=== PATIENT | male | born 1940 | race Caucasian/White ===

== ENCOUNTER 2018-02-07 17:41 | Emergency (ER) | payer MEDICARE, SELFPAY ==
[2018-02-07 17:44] VITALS: BP 168/54; PULSE 50; RESP 20; TEMP 36.2; O2SAT 97; BMI 24.0
--- NOTE | 2018-02-07 18:21 | ED_ITS ---
HPI - Abdominal Pain <KIRAN Yoder - Last Filed: 02/07/18 22:40> General Chief Complaint: Abdominal Pain Stated Complaint: RIGHT LWR ABDOMINAL PAIN,BLOOD IN URINE Time Seen by Provider: 02/07/18 18:05 History of Present Illness HPI narrative: 77-year-old healthy male here for complaint of pain into his right lower quadrant. Pain radiates into his right flank area. He denies any trauma to the area. He also reports that he has had blood in his urine over the last few weeks. He denies any fevers or chills. Last bowel movement was yesterday and was normal. Positive nausea. No vomiting. He denies any other concerns or complaints at this point. He reports that walking and weight- bearing increase the pain. Related Data Home Medications Medication Instructions Recorded Confirmed No Known Home Medications 02/07/18 02/07/18 Allergies Allergy/AdvReac Type Severity Reaction Status Date / Time No Known Drug Allergies Allergy Unverified 02/07/18 17:01 Review of Systems <KIRAN Yoder - Last Filed: 02/07/18 22:40> Constitutional Denies chills, Denies fever(s), Denies lethargy and Denies weakness Eyes Denies change in vision, Denies eye discharge, Denies irritation and Denies loss of vision ENT Ears, Nose, Mouth, and Throat: Denies change in voice, Denies neck pain and Denies sore throat Cardiovascular Denies chest pain, Denies irregular heart rhythm, Denies lightheadedness, Denies palpitations, Denies dyspnea, Denies dyspnea on exertion and Denies orthopnea Respiratory Denies cough, Denies dyspnea, Denies dyspnea on exertion and Denies wheezing Gastrointestinal Gastrointestinal: Reports abdominal pain Genitourinary Reports hematuria and Reports flank pain Musculoskeletal Denies neck pain Integumentary/Breasts Denies pruritus, Denies erythema, Denies rash and Denies wounds Neurologic Denies loss of vision and Denies weakness Endocrine Denies palpitations Hematologic/Lymphatic Denies easy bruising Allergic/Immunologic Denies wheezing Exam <KIRAN Yoder - Last Filed: 02/07/18 22:40> Initial Vital Signs Initial Vital Signs: Vital Signs Temperature 97.1 F L 02/07/18 17:44 Pulse Rate 50 L 02/07/18 17:44 Respiratory Rate 20 02/07/18 17:44 Blood Pressure 168/54 H 02/07/18 17:44 Pulse Oximetry 97 02/07/18 17:44 Const General: cooperative and well developed Nutritional Appearance: well nourished Orientation: alert, awake, oriented x3 and not confused [facility] Mouth: oral mucosae normal, oropharynx normal and moist mucous membranes Eyes Conjunctivae: conjunctivae normal Sclera: sclerae normal Pupils: PERRL EOM: EOM intact bilaterally Resp Effort & Inspection: normal respiratory effort, able to speak in complete sentences, no respiratory distress and no use of accessory muscles Auscultation: clear to auscultation bilaterally, no rales, no rhonchi and no wheezes Cardio Rate: regular rate Rhythm: regular rhythm Heart Sounds: no click, no gallops, no murmurs and no rubs GI Inspection: distended Palpation: no hepatosplenomegaly, firm, No guarding, No pulsatile mass and No tender General: No CVA tenderness Skin General: no rashes or lesions noted, No jaundice and No petechiae <Evan Sanchez DO - Last Filed: 02/08/18 00:17> Initial Vital Signs Initial Vital Signs: Vital Signs Temperature 97.1 F L 02/07/18 17:44 Pulse Rate 50 L 02/07/18 17:44 Respiratory Rate 20 02/07/18 17:44 Blood Pressure 168/54 H 02/07/18 17:44 Pulse Oximetry 97 02/07/18 17:44 Course <KIRAN Yoder - Last Filed: 02/07/18 22:40> Orders Ordered: ED Orders 02/07/18 20:00 Complete Blood Count AUTO DIFF Stat Comprehensive Metabolic Panel Stat Lipase Stat Urinalysis and Microscopic Stat 02/07/18 20:10 Creatinine Urine Random Stat Sodium Urine Random Stat 02/07/18 20:47 CT kidney ureter bladder (KUB) Stat Discontinued Medications Glucagon (Glucagen) 0.25 mg IV NOW ONE Stop: 02/07/18 21:51 Sodium Chloride (Normal Saline 0.9%) 1,000 mls @ 1,000 mls/hr IV BOLUS ONE Stop: 02/07/18 20:45 Last Admin: 02/07/18 20:15 Dose: 1,000 mls/hr Sodium Chloride (Normal Saline 0.9%) 1,000 mls @ 150 mls/hr IV CONT [facility] Vital Signs - 8 hr 02/07/18 17:44 02/07/18 19:30 02/07/18 20:30 Temperature 97.1 F L Pulse Rate 50 L 56 L 66 Respiratory Rate 20 Blood Pressure 168/54 H Blood Pressure [Left Arm] 164/73 H 163/72 H Pulse Oximetry 97 100 100 02/07/18 21:26 02/07/18 22:00 Temperature Pulse Rate 64 74 Respiratory Rate Blood Pressure Blood Pressure [Left Arm] 173/74 H 154/65 H Pulse Oximetry 100 100 <Evan Sanchez DO - Last Filed: 02/08/18 00:17> Orders Ordered: ED Orders 02/07/18 20:00 Complete Blood Count AUTO DIFF Stat Comprehensive Metabolic Panel Stat Lipase Stat Urinalysis and Microscopic Stat 02/07/18 20:10 Creatinine Urine Random Stat Sodium Urine Random Stat 02/07/18 20:47 CT kidney ureter bladder (KUB) Stat Discontinued Medications Glucagon (Glucagen) 0.25 mg IV NOW ONE Stop: 02/07/18 21:51 Sodium Chloride (Normal Saline 0.9%) 1,000 mls @ 1,000 mls/hr IV BOLUS ONE Stop: 02/07/18 20:45 Last Admin: 02/07/18 20:15 Dose: 1,000 mls/hr Sodium Chloride (Normal Saline 0.9%) 1,000 mls @ 150 mls/hr IV CONT [facility] Vital Signs - 8 hr 02/07/18 17:44 02/07/18 19:30 02/07/18 20:30 Temperature 97.1 F L Pulse Rate 50 L 56 L 66 Respiratory Rate 20 Blood Pressure 168/54 H Blood Pressure [Left Arm] 164/73 H 163/72 H Pulse Oximetry 97 100 100 02/07/18 21:26 02/07/18 22:00 Temperature Pulse Rate 64 74 Respiratory Rate Blood Pressure Blood Pressure [Left Arm] 173/74 H 154/65 H Pulse Oximetry 100 100 MDM - Abdominal Pain <KIRAN Yoder - Last Filed: 02/07/18 22:40> Lab Data Result diagrams: 02/07/18 20:00 02/07/18 20:00 Lab Results 02/07/18 02/07/18 02/07/18 Range/Units 20:00 20:00 20:00 WBC 10.4 (4.5-11.0) X10^3/uL RBC 3.25 L (4.5-5.9) X10^6/uL Hgb 10.7 L (13.5-17.5) g/dL Hct 30.4 L (41-53) % MCV 93.6 (80-100) fL MCH 32.9 (26-34) PG MCHC 35.2 (30-36) % RDW 12.9 (11.6-14.8) % Plt Count 217 (150-400) X10^3/uL Neut % (Auto) 93.4 H (50-75) % Lymph % (Auto) 3.9 L (25-40) % Banks % (Auto) 2.0 L (3-14) % Eos % (Auto) 0.1 L (2-4) % Baso % (Auto) 0.6 (0-2) % Neut # (Auto) 9700 H (0458-8910) /uL Sodium 142 (137-145) mmol/L Potassium 4.5 (3.4-5.1) mmol/L Chloride 106 (98-107) mmol/L Carbon Dioxide 18 L (22-32) mmol/L BUN 65 H (9-20) mg/dL Creatinine 3.50 H (0.66-1.25) mg/dL Estimated GFR 17.1 L (>60) mL/min BUN/Creatinine Ratio 18.6 (6-22) Glucose 113 H (80-110) mg/dL Calcium 9.5 (8.4-10.2) mg/dL Total Bilirubin 0.8 (0.2-1.3) mg/dL AST 27 (17-59) IU/L ALT 26 (21-72) IU/L Alkaline Phosphatase 72 (38-126) U/L Total Protein 8.4 H (6.3-8.2) g/dL Albumin 4.8 (3.5-5.0) g/dL Globulin 3.6 (1.7-4.1) g/dL Albumin/Globulin Ratio 1.3 (1.0-2.8) Lipase 229 (23-300) U/L Urine Color Yellow Urine Appearance Clear Urine pH 5.5 (4.5-8.0) Ur Specific Christmas 1.010 (1.000-1.035) Urine Protein Negative (Negative) Urine Glucose (UA) Negative (Normal) g/dL Urine Ketones Negative (NEGATIVE) Urine Occult Blood 3+ H (Negative) Urine Nitrate Negative (Negative) Urine Bilirubin Negative (NEGATIVE) Urine Urobilinogen 0.2 (0.2) E.U./dL Ur Leukocyte Esterase Negative (NEGATIVE) Urine RBC 5-10/hpf H (0-5/HPF) Urine WBC 0-1/hpf (0-5/HPF) Ur Squamous Epith Cells 0-1 /hpf Urine Bacteria None seen (None) Ur Culture Indicated? Not Reportable Micro UA Comment Not Reportable Ur Random Sodium (30-90) mmol/L Urine Creatinine mg/dL 02/07/18 Range/Units 20:10 WBC (4.5-11.0) X10^3/uL RBC (4.5-5.9) X10^6/uL Hgb (13.5-17.5) g/dL Hct (41-53) % MCV (80-100) fL MCH (26-34) PG MCHC (30-36) % RDW (11.6-14.8) % Plt Count (150-400) X10^3/uL Neut % (Auto) (50-75) % Lymph % (Auto) (25-40) % Banks % (Auto) (3-14) % Eos % (Auto) (2-4) % Baso % (Auto) (0-2) % Neut # (Auto) (0095-3680) /uL Sodium (137-145) mmol/L Potassium (3.4-5.1) mmol/L Chloride (98-107) mmol/L Carbon Dioxide (22-32) mmol/L BUN (9-20) mg/dL Creatinine (0.66-1.25) mg/dL Estimated GFR (>60) mL/min BUN/Creatinine Ratio (6-22) Glucose (80-110) mg/dL Calcium (8.4-10.2) mg/dL Total Bilirubin (0.2-1.3) mg/dL AST (17-59) IU/L ALT (21-72) IU/L Alkaline Phosphatase (38-126) U/L Total Protein (6.3-8.2) g/dL Albumin (3.5-5.0) g/dL Globulin (1.7-4.1) g/dL Albumin/Globulin Ratio (1.0-2.8) Lipase (23-300) U/L Urine Color Urine Appearance Urine pH (4.5-8.0) Ur Specific Christmas (1.000-1.035) Urine Protein (Negative) Urine Glucose (UA) (Normal) g/dL Urine Ketones (NEGATIVE) Urine Occult Blood (Negative) Urine Nitrate (Negative) Urine Bilirubin (NEGATIVE) Urine Urobilinogen (0.2) E.U./dL Ur Leukocyte Esterase (NEGATIVE) Urine RBC (0-5/HPF) Urine WBC (0-5/HPF) Ur Squamous Epith Cells Urine Bacteria (None) Ur Culture Indicated? Micro UA Comment Ur Random Sodium 60 (30-90) mmol/L Urine Creatinine 45.0 mg/dL Imaging Data CT scan - abdomen: Radiologist's impression: PROCEDURE: CT KIDNEY URETER BLADDER (KUB) INDICATIONS: 77 year-old male with right flank pain. TECHNIQUE: Noncontrast 5 mm thick sections acquired from the diaphragms to the symphysis. 5 mm thick coronal and sagittal reformats were then performed. For radiation dose reduction, the following was used: automated exposure control, adjustment of mA and/or kV according to patient size. COMPARISON: None. FINDINGS: Image quality: Excellent. Lung bases: Lung bases are clear. Heart size is normal. Urinary system: Both kidneys are normal in size. There is 6 mm nonobstructing left renal stone. There is severe bilateral hydroureteronephrosis. There is asymmetric inflammatory fat stranding in the right anterior pararenal space. There is massive distention of the bladder, although with diffuse bladder wall thickening and trabeculation. Prostate gland is prominent in overall size at 7.6 x 7.0 cm. Other solid organs: Liver is normal in size, with 5.1 x 3.9 cm left hepatic lobe simple cyst. Gallbladder wall thickness is normal. Pancreas is normal in contours. Spleen is normal in size. No adrenal nodules. Peritoneum and bowel: Unenhanced bowel loops demonstrate normal wall thickness and caliber. No free fluid or air. Nodes and vessels: No retroperitoneal or mesenteric adenopathy by size criteria. Aorta and inferior vena cava are normal in caliber, with moderate aortoiliac atherosclerosis. Abdominal wall: No ventral hernias. Pelvis: No free pelvic fluid. No inguinal hernias or adenopathy. Bones: No suspicious bony lesions. No vertebral body compression fractures. There is upper and lower lumbar spine disc degeneration. IMPRESSION: 1. Findings of severe chronic bladder outlet obstruction secondary to an enlarged prostate gland (presumably benign prostatic hyperplasia). Concomitant prostate neoplasm cannot be excluded based on CT imaging appearances. 2. Resultant vesicoureteral reflux causes severe bilateral hydroureteronephrosis. Asymmetric fluid density in the right anterior pararenal space would be suspicious for rupture of the right renal collecting system. Sequelae of localized acute pancreatitis would be less likely in the differential diagnosis. 3. Solitary nonobstructing 6 mm left renal stone. 4. Incidental 5.1 cm left hepatic lobe simple cyst. Dictated by: Carlos Cohen M.D. on 02/07/2018 at 21:06 Approved by: Carlos Cohen M.D. on 02/07/2018 at 21:16 MDM Narrative Medical decision making narrative: CBC shows decreased H&H with no elevated white count. CMP shows creatinine was elevated at 3.5 and GFR of 17. KUB of the abdomen was obtained and shows a significantly enlarged bladder with enlarged prostate and hydro nephrosis and ureter. Signs are consistent with chronic urine output constriction secondary to BPH. Discussed case with Dr. Crawley hospitalist does not feel the patient is to be admitted at this time. Boyce catheter was inserted he drained approximately 2 L of urine. He is released home with Boyce catheter for drainage and he is encouraged to follow up with Urology. Patient call Urology as office 1st thing Friday morning to schedule follow-up appointment. For any worsening symptoms return to the emergency room. <Evan Sanchez, - Last Filed: 02/08/18 00:17> Lab Data Lab Results 02/07/18 02/07/18 02/07/18 Range/Units 20:00 20:00 20:00 WBC 10.4 (4.5-11.0) X10^3/uL RBC 3.25 L (4.5-5.9) X10^6/uL Hgb 10.7 L (13.5-17.5) g/dL Hct 30.4 L (41-53) % MCV 93.6 (80-100) fL MCH 32.9 (26-34) PG MCHC 35.2 (30-36) % RDW 12.9 (11.6-14.8) % Plt Count 217 (150-400) X10^3/uL Neut % (Auto) 93.4 H (50-75) % Lymph % (Auto) 3.9 L (25-40) % Banks % (Auto) 2.0 L (3-14) % Eos % (Auto) 0.1 L (2-4) % Baso % (Auto) 0.6 (0-2) % Neut # (Auto) 9700 H (5041-7079) /uL Sodium 142 (137-145) mmol/L Potassium 4.5 (3.4-5.1) mmol/L Chloride 106 (98-107) mmol/L Carbon Dioxide 18 L (22-32) mmol/L BUN 65 H (9-20) mg/dL Creatinine 3.50 H (0.66-1.25) mg/dL Estimated GFR 17.1 L (>60) mL/min BUN/Creatinine Ratio 18.6 (6-22) Glucose 113 H (80-110) mg/dL Calcium 9.5 (8.4-10.2) mg/dL Total Bilirubin 0.8 (0.2-1.3) mg/dL AST 27 (17-59) IU/L ALT 26 (21-72) IU/L Alkaline Phosphatase 72 (38-126) U/L Total Protein 8.4 H (6.3-8.2) g/dL Albumin 4.8 (3.5-5.0) g/dL Globulin 3.6 (1.7-4.1) g/dL Albumin/Globulin Ratio 1.3 (1.0-2.8) Lipase 229 (23-300) U/L Urine Color Yellow Urine Appearance Clear Urine pH 5.5 (4.5-8.0) Ur Specific Christmas 1.010 (1.000-1.035) Urine Protein Negative (Negative) Urine Glucose (UA) Negative (Normal) g/dL Urine Ketones Negative (NEGATIVE) Urine Occult Blood 3+ H (Negative) Urine Nitrate Negative (Negative) Urine Bilirubin Negative (NEGATIVE) Urine Urobilinogen 0.2 (0.2) E.U./dL Ur Leukocyte Esterase Negative (NEGATIVE) Urine RBC 5-10/hpf H (0-5/HPF) Urine WBC 0-1/hpf (0-5/HPF) Ur Squamous Epith Cells 0-1 /hpf Urine Bacteria None seen (None) Ur Culture Indicated? Not Reportable Micro UA Comment Not Reportable Ur Random Sodium (30-90) mmol/L Urine Creatinine mg/dL 02/07/18 Range/Units 20:10 WBC (4.5-11.0) X10^3/uL RBC (4.5-5.9) X10^6/uL Hgb (13.5-17.5) g/dL Hct (41-53) % MCV (80-100) fL MCH (26-34) PG MCHC (30-36) % RDW (11.6-14.8) % Plt Count (150-400) X10^3/uL Neut % (Auto) (50-75) % Lymph % (Auto) (25-40) % Banks % (Auto) (3-14) % Eos % (Auto) (2-4) % Baso % (Auto) (0-2) % Neut # (Auto) (0136-2598) /uL Sodium (137-145) mmol/L Potassium (3.4-5.1) mmol/L Chloride (98-107) mmol/L Carbon Dioxide (22-32) mmol/L BUN (9-20) mg/dL Creatinine (0.66-1.25) mg/dL Estimated GFR (>60) mL/min BUN/Creatinine Ratio (6-22) Glucose (80-110) mg/dL Calcium (8.4-10.2) mg/dL Total Bilirubin (0.2-1.3) mg/dL AST (17-59) IU/L ALT (21-72) IU/L Alkaline Phosphatase (38-126) U/L Total Protein (6.3-8.2) g/dL Albumin (3.5-5.0) g/dL Globulin (1.7-4.1) g/dL Albumin/Globulin Ratio (1.0-2.8) Lipase (23-300) U/L Urine Color Urine Appearance Urine pH (4.5-8.0) Ur Specific Christmas (1.000-1.035) Urine Protein (Negative) Urine Glucose (UA) (Normal) g/dL Urine Ketones (NEGATIVE) Urine Occult Blood (Negative) Urine Nitrate (Negative) Urine Bilirubin (NEGATIVE) Urine Urobilinogen (0.2) E.U./dL Ur Leukocyte Esterase (NEGATIVE) Urine RBC (0-5/HPF) Urine WBC (0-5/HPF) Ur Squamous Epith Cells Urine Bacteria (None) Ur Culture Indicated? Micro UA Comment Ur Random Sodium 60 (30-90) mmol/L Urine Creatinine 45.0 mg/dL Discharge Plan Departure Patient Disposition: Home, Self-Care Clinical Impression: Bladder outlet obstruction Discharge Date/Time: 02/07/18 23:03 Interventions: ED Discharge Assessment Last Done: 02/07/18 23:01 Instructions: DI for Urinary Retention in Men Prescriptions: No Action No Known Home Medications RF: 0 Referrals: [facility] [Provider Group] <Evan Sanchez DO - Last Filed: 02/08/18 00:17> [facility] Attestation: I was available for consultation during this patient's emergency department encounter
[2018-02-07 19:30] VITALS: BP 164/73; PULSE 56; O2SAT 100
[2018-02-07 20:12] LABS: Bacteria Urine None Seen
[2018-02-07 20:14] LABS: Appearance Urine UA CLEAR; Bilirubin Urine UA NEGATIVE (NEGATIVE); Color Urine UA YELLOW; Glucose Urine UA NEGATIVE (Normal); Ketones Urine UA NEGATIVE (NEGATIVE); Leukocyte Esterase Urine UA NEGATIVE (NEGATIVE); Nitrite Urine UA Negative (Negative); Occult Blood Urine UA 3+ (Negative); Protein Urine UA NEGATIVE (Negative); Urobilinogen Urine UA 0.2 E.U./dL (0.2); pH Urine UA 5.5 (4.5-8.0)
[2018-02-07 20:15] LABS: Add Manual Diff / Slide Review NO; Basophils Percent Auto 0.6 % (0-2); Eosinophils Percent Auto 0.1 % (2-4); Hematocrit 30.4 % (41-53); Hemoglobin 10.7 g/dL (13.5-17.5); Lymphocytes Percent Auto 3.9 % (25-40); Mean Corpuscular HGB Conc 35.2 % (30-36); Mean Corpuscular Hemoglobin 32.9 PG (26-34); Mean Corpuscular Volume 93.6 fL (80-100); Neutrophils Absolute Auto 9700 /uL (3000-5900); Neutrophils Percent Auto 93.4 % (50-75); Platelet Count 217 X10^3/uL (150-400); Red Blood Cell Count 3.25 X10^6/uL (4.5-5.9); Red Cell Distribution Width 12.9 % (11.6-14.8); White Blood Cell Count 10.4 X10^3/uL (4.5-11.0)
[2018-02-07] MEDS: SODIUM CHLORIDE 0.9% 1,000 ML 1000 ML IV (20:15)
[2018-02-07 20:26] LABS: Alanine Aminotransferase 26 IU/L (21-72); Albumin 4.8 g/dL (3.5-5.0); Albumin Globulin Ratio 1.3 (1.0-2.8); Alkaline Phosphatase 72 U/L (38-126); Aspartate Aminotransferase 27 IU/L (17-59); BUN Creatinine Ratio 18.6 (6-22); Bilirubin Total 0.8 mg/dL (0.2-1.3); Blood Urea Nitrogen 65 mg/dL (9-20); Calcium 9.5 mg/dL (8.4-10.2); Carbon Dioxide 18 mmol/L (22-32); Chloride 106 mmol/L (98-107); Estimated Glomerular Filt Rate 17.1 mL/min (>60); Globulin 3.6 g/dL (1.7-4.1); Glucose 113 mg/dL (80-110); HEMOLYSIS < 15 (0-50); Lipase 229 U/L (23-300); Potassium 4.5 mmol/L (3.4-5.1); Sodium 142 mmol/L (137-145); Total Protein 8.4 g/dL (6.3-8.2)
[2018-02-07 20:30] VITALS: BP 163/72; PULSE 66; O2SAT 100
[2018-02-07 20:47] LABS: RBC Urine 5-10/HPF (0-5/HPF); Squamous Epithelial Cell Urine 0-1 /HPF; WBC Urine 0-1/HPF (0-5/HPF)
--- NOTE | 2018-02-07 20:47 | DI.CT.S_ITS ---
PROCEDURE: CT KIDNEY URETER BLADDER (KUB) INDICATIONS: 77 year-old male with right flank pain. TECHNIQUE: Noncontrast 5 mm thick sections acquired from the diaphragms to the symphysis. 5 mm thick coronal and sagittal reformats were then performed. For radiation dose reduction, the following was used: automated exposure control, adjustment of mA and/or kV according to patient size. COMPARISON: None. FINDINGS: Image quality: Excellent. Lung bases: Lung bases are clear. Heart size is normal. Urinary system: Both kidneys are normal in size. There is 6 mm nonobstructing left renal stone. There is severe bilateral hydroureteronephrosis. There is asymmetric inflammatory fat stranding in the right anterior pararenal space. There is massive distention of the bladder, although with diffuse bladder wall thickening and trabeculation. Prostate gland is prominent in overall size at 7.6 x 7.0 cm. Other solid organs: Liver is normal in size, with 5.1 x 3.9 cm left hepatic lobe simple cyst. Gallbladder wall thickness is normal. Pancreas is normal in contours. Spleen is normal in size. No adrenal nodules. Peritoneum and bowel: Unenhanced bowel loops demonstrate normal wall thickness and caliber. No free fluid or air. Nodes and vessels: No retroperitoneal or mesenteric adenopathy by size criteria. Aorta and inferior vena cava are normal in caliber, with moderate aortoiliac atherosclerosis. Abdominal wall: No ventral hernias. Pelvis: No free pelvic fluid. No inguinal hernias or adenopathy. Bones: No suspicious bony lesions. No vertebral body compression fractures. There is upper and lower lumbar spine disc degeneration. IMPRESSION: 1. Findings of severe chronic bladder outlet obstruction secondary to an enlarged prostate gland (presumably benign prostatic hyperplasia). Concomitant prostate neoplasm cannot be excluded based on CT imaging appearances. 2. Resultant vesicoureteral reflux causes severe bilateral hydroureteronephrosis. Asymmetric fluid density in the right anterior pararenal space would be suspicious for rupture of the right renal collecting system. Sequelae of localized acute pancreatitis would be less likely in the differential diagnosis. 3. Solitary nonobstructing 6 mm left renal stone. 4. Incidental 5.1 cm left hepatic lobe simple cyst. Dictated by: Carlos Cohen M.D. on 02/07/2018 at 21:06 Approved by: Carlos Cohen M.D. on 02/07/2018 at 21:16
[2018-02-07 21:25] LABS: Sodium Urine Random 60 mmol/L (30-90)
[2018-02-07 21:26] VITALS: BP 173/74; PULSE 64; O2SAT 100
[2018-02-07 22:00] VITALS: BP 154/65; PULSE 74; O2SAT 100
--- NOTE | 2018-02-07 22:32 | PC.NURSE ---
Feeling much relieved with bladder draining
== END 2018-02-07 23:03 | disposition home or self-care (01) ==
PROVIDERS: Emergency Provider Nurse Practitioner Family
DX: N32.0 Bladder-neck obstruction (principal)
CPT/HCPCS: 36591; 51701; 74176; 80053; 81001; 82570; 83690; 84300; 85025; 96361; 96374; 99283; 99284

== ENCOUNTER 2018-02-08 15:25 | Emergency (ER) | payer MEDICARE, SELFPAY ==
[2018-02-08 15:31] VITALS: BP 136/80; PULSE 82; RESP 16; TEMP 36.2; O2SAT 100; BMI 24.0
--- NOTE | 2018-02-08 16:52 | ED_ITS ---
HPI - Male Genitourinary <KIRAN Yoder - Last Filed: 02/08/18 21:34> General Chief complaint: Urogenital-Male Stated complaint: CATH ISSUES,LOTS OF BLEEDING Time Seen by Provider: 02/08/18 16:52 History of Present Illness HPI Narrative: 77-year-old male here for complaint of blood in his urine. Patient was seen by me yesterday for abdominal pain and was found to have bladder outlet obstruction secondary to BPH and subsequent acute renal failure. He had a Boyce catheter placed yesterday to drain the bladder which had over 2 L in it. He reports today that he noticed that there was more blood in his urine than previously. He denies any pain or fevers he denies any other concerns or complaints at this time. He does state that he feels much better after his bladder has been draining Related Data Previous Rx's Medication Instructions Recorded finasteride 5 mg PO DAILY #30 tab 02/08/18 tamsulosin 0.4 mg PO DAILY #30 cap 02/08/18 Allergies Allergy/AdvReac Type Severity Reaction Status Date / Time No Known Drug Allergies Allergy Unverified 02/07/18 17:01 Review of Systems <KIRAN Yoder - Last Filed: 02/08/18 21:34> Constitutional Denies chills, Denies fatigue, Denies fever(s), Denies lethargy and Denies weakness Eyes Denies change in vision, Denies eye discharge, Denies irritation and Denies loss of vision ENT Ears, Nose, Mouth, and Throat: Denies throat swelling Respiratory Denies wheezing Genitourinary Reports hematuria Musculoskeletal Denies back pain, Denies muscle weakness, Denies numbness and Denies tingling Integumentary/Breasts Denies pruritus, Denies erythema, Denies rash and Denies wounds Neurologic Denies confusion, Denies loss of vision, Denies numbness, Denies tingling and Denies weakness Psychiatric Denies anxiety, Denies confusion, Denies depression, Denies homicidal ideation and Denies suicidal ideation Endocrine Denies fatigue and Denies flushing Hematologic/Lymphatic Denies easy bruising Allergic/Immunologic Denies urticaria, Denies throat swelling and Denies wheezing Exam <KIRAN Yoder - Last Filed: 02/08/18 21:34> Initial Vital Signs Initial Vital Signs: Vital Signs Temperature 97.1 F L 02/08/18 15:31 Pulse Rate 82 02/08/18 15:31 Respiratory Rate 16 02/08/18 15:31 Blood Pressure 136/80 H 02/08/18 15:31 Pulse Oximetry 100 02/08/18 15:31 Const General: cooperative and well developed Nutritional Appearance: well nourished Orientation: alert, awake, oriented x3 and not confused HENMT Mouth: oral mucosae normal and moist mucous membranes Eyes Conjunctivae: conjunctivae normal Sclera: sclerae normal Pupils: PERRL Resp Effort & Inspection: normal respiratory effort, able to speak in complete sentences, no respiratory distress and no use of accessory muscles Auscultation: clear to auscultation bilaterally, no rales, no rhonchi and no wheezes Cardio Rate: regular rate Rhythm: regular rhythm Heart Sounds: no click, no gallops, no murmurs and no rubs GI Inspection: non-distended Palpation: soft, no hepatosplenomegaly, No guarding, No pulsatile mass and No tender Auscultation: normal bowel sounds General: No CVA tenderness Penis: normal penis Testes: normal Other: Boyce catheter inserted currently draining clear reddish urine Skin General: no rashes or lesions noted, No jaundice and No petechiae <Ye Palomares DO - Last Filed: 02/09/18 07:19> Initial Vital Signs Initial Vital Signs: Vital Signs Temperature 97.1 F L 02/08/18 15:31 Pulse Rate 82 02/08/18 15:31 Respiratory Rate 16 02/08/18 15:31 Blood Pressure 136/80 H 02/08/18 15:31 Pulse Oximetry 100 02/08/18 15:31 Course <KIRAN Yoder - Last Filed: 02/08/18 21:34> Vital Signs - 8 hr 02/08/18 15:31 02/08/18 18:04 Temperature 97.1 F L Pulse Rate 82 72 Respiratory Rate 16 15 Blood Pressure 136/80 H Blood Pressure [Right Arm] 158/79 H Pulse Oximetry 100 100 <Ye Palomares DO - Last Filed: 02/09/18 07:19> Vital Signs - 8 hr 02/08/18 15:31 02/08/18 18:04 Temperature 97.1 F L Pulse Rate 82 72 Respiratory Rate 16 15 Blood Pressure 136/80 H Blood Pressure [Right Arm] 158/79 H Pulse Oximetry 100 100 MDM - Male Genitourinary <KIRAN Yoder - Last Filed: 02/08/18 21:34> [facility] Narrative Medical decision making narrative: Patient feeling much better today than yesterday. Patient has decreased distention of the abdomen. Discussed case with Urology Dr. mazariegos whose office will follow up with patient later this week. Will continue with Boyce catheter. Ensure drinking plenty of fluids. He is prescribed Tamulosin and finasteride. For any worsening symptoms return to the emergency room. Discharge Plan Departure Patient Disposition: Home, Self-Care Clinical Impression: Bladder outlet obstruction, Acute renal failure Discharge Date/Time: 02/08/18 18:13 Interventions: ED Discharge Assessment Last Done: 02/08/18 18:08 Instructions: DI for Benign Prostatic Hyperplasia Activity Restrictions/Additional Instructions: Blood in urine is secondary to the swelling of the bladder due to outlet syndrome. Follow up with Urology in the next few days call the office tomorrow add number provided. You have been prescribed Flomax and Proscar use as directed to help with prostate hypertrophy. Plenty of fluids. For any worsening symptoms return to the emergency room. Prescriptions: New tamsulosin 0.4 mg capsule,extended release 24hr 0.4 mg PO DAILY Qty: 30 RF: 0 finasteride 5 mg tablet 5 mg PO DAILY Qty: 30 RF: 0 Referrals: [facility] [Provider Group] (urology [facility] [phone] Dr. Timothy Lolyd) <Ye Palomares DO - Last Filed: 02/09/18 07:19> [place] [facility] Attending Farrukh Attestation: I was immediately available in the department for consultation. Documentation has been reviewed. I agree with assessment and plan.
--- NOTE | 2018-02-08 16:54 | PC.NURSE ---
Urine in bag is grossly san[place]
[2018-02-08 18:04] VITALS: BP 158/79; PULSE 72; RESP 15; O2SAT 100
== END 2018-02-08 18:13 | disposition home or self-care (01) ==
PROVIDERS: Emergency Provider Nurse Practitioner Family
DX: N32.0 Bladder-neck obstruction (principal); N17.9 Acute kidney failure, unspecified
CPT/HCPCS: 99282

== ENCOUNTER 2018-02-10 05:53 | Emergency (ER) | payer MEDICARE, SELFPAY ==
[2018-02-10 06:01] VITALS: BP 143/79; PULSE 88; RESP 16; TEMP 36.7; O2SAT 98; BMI 24.0
--- NOTE | 2018-02-10 06:13 | ED.MALEGU ---
HPI - Male Genitourinary General Chief complaint: Urogenital-Male Stated complaint: Catheter is plugged, not working Time Seen by Provider: 02/10/18 05:55 Source: patient Mode of arrival: ambulatory Limitations: no limitations History of Present Illness HPI Narrative: 77-year-old male seen in the emergency department a couple days ago for acute urinary retention and had a Boyce catheter placed. Was seen the day after for bleeding however the catheter was still working. Returns today because he states that the blood that he who saw couple days ago turn to dark red and then turned flakes and is now on not had any drainage from the catheter and approximately 12 hr. States that he has urinated 3 times around the catheter. States that he also feels abdominal distention. No fevers. Patient not on blood thinners. Has contacted his urology office for follow-up. Has requested that his records to be faxed to the urologist. Does not have a specific follow-up appointment as of yet. Related Data Previous Rx's Medication Instructions Recorded finasteride 5 mg PO DAILY #30 tab 02/08/18 tamsulosin 0.4 mg PO DAILY #30 cap 02/08/18 Allergies Allergy/AdvReac Type Severity Reaction Status Date / Time No Known Drug Allergies Allergy Verified 02/10/18 06:10 Review of Systems Constitutional Denies chills, Denies fever(s), Denies lethargy and Denies weakness Gastrointestinal Comments: Abdominal pain and distension Genitourinary Comments: Boyce catheter blocked and has not drained in 12 hr Integumentary/Breasts Denies pruritus, Denies erythema, Denies rash and Denies wounds Neurologic Denies weakness Hematologic/Lymphatic Denies easy bleeding PFSH Surgical History History of appendectomy (Acute) Social History Smoking Status: Former smoker Exam Initial Vital Signs Initial Vital Signs: Vital Signs Temperature 98.1 F 02/10/18 06:01 Pulse Rate 88 02/10/18 06:01 Respiratory Rate 16 02/10/18 06:01 Blood Pressure 143/79 H 02/10/18 06:01 Pulse Oximetry 98 02/10/18 06:01 Resp Effort & Inspection: normal respiratory effort and able to speak in complete sentences GI Other: Lower abdomen tender, distended no rebound Other: Boyce catheter in place without drainage into the leg bag Skin General: no rashes or lesions noted, No jaundice and No petechiae Neuro General: alert, awake and oriented x3 Course Vital Signs - 8 hr 02/10/18 06:01 Temperature 98.1 F Pulse Rate 88 Respiratory Rate 16 Blood Pressure 143/79 H Pulse Oximetry 98 MDM - Male Genitourinary MDM Narrative Medical decision making narrative: We were able to flush the patient's indwelling Boyce catheter and had a return of blood clots. We then had a return of approximately 1 L of urine. It was flowing clear afterwards. Will hold on switching the Boyce catheter. Will hold on any lab testing. We discussed return precautions with the patient. He will contact his urologist again today to work on scheduling his follow-up appointment. He expressed understanding and agreement with Discharge Plan Departure Patient Disposition: Home, Self-Care Clinical Impression: Complication, blocked Boyce catheter Instructions: How to Care for Your Boyce Catheter -- Male Activity Restrictions/Additional Instructions: Would recommend that you start taking the medications as directed. Make sure your continuing to increase your fluid intake. Would recommend that you contact your urologist office today to see if they received your records that you requested. Return to the emergency department for any new or worsening symptoms Prescriptions: No Action tamsulosin 0.4 mg capsule,extended release 24hr 0.4 mg PO DAILY Qty: 30 RF: 0 finasteride 5 mg tablet 5 mg PO DAILY Qty: 30 RF: 0
[2018-02-10 07:01] VITALS: BP 142/75; PULSE 86; RESP 16; TEMP 36.8; O2SAT 98
== END 2018-02-10 06:50 | disposition home or self-care (01) ==
LOC: ED 06:52
PROVIDERS: Emergency Provider Emergency Medicine
DX: T83.091A Other mechanical complication of indwelling urethral catheter, initial encounter (principal)
CPT/HCPCS: 51700; 99283

== ENCOUNTER → 2020-12-08 14:17 | Outpatient (CLI) | payer MEDICARE, SELFPAY ==
[2020-12-08] MEDS: COVID-19 VACC, Ad26(JANSSEN)/PF 0.5 ML IM (14:25)
== END ==
PROVIDERS: Visit Provider Internal Medicine
DX: Z23 Encounter for immunization (principal)
CPT/HCPCS: 0031A; 91303

== ENCOUNTER → 2021-10-16 11:49 | Outpatient (CLI) | payer MEDICARE, SELFPAY ==
[2021-10-16 13:31] LABS: Prostate Specific Antigen 12.1 ng/mL (0.10-4.00)
== END ==
PROVIDERS: Referring Provider Urology; Visit Provider Urology
DX: C61 Malignant neoplasm of prostate (principal)
CPT/HCPCS: 36415; 84153

== ENCOUNTER → 2022-02-06 13:38 | Outpatient (CLI) | payer MEDICARE, SELFPAY ==
[2022-02-06 15:21] LABS: Prostate Specific Antigen 2.88 ng/mL (0.10-4.00)
== END ==
PROVIDERS: Referring Provider Urology; Visit Provider Urology
DX: C61 Malignant neoplasm of prostate (principal)
CPT/HCPCS: 36415; 84153

== ENCOUNTER → 2022-06-07 13:35 | Outpatient (CLI) | payer MEDICARE, SELFPAY ==
[2022-06-07 15:44] LABS: Prostate Specific Antigen 5.08 ng/mL (0.10-4.00)
== END ==
PROVIDERS: Referring Provider Urology; Visit Provider Urology
DX: C61 Malignant neoplasm of prostate (principal)
CPT/HCPCS: 36415; 84153

== ENCOUNTER → 2022-10-10 13:18 | Outpatient (CLI) | payer MEDICARE, SELFPAY ==
[2022-10-10 15:17] LABS: Prostate Specific Antigen 3.21 ng/mL (0.10-4.00)
== END ==
PROVIDERS: Referring Provider Urology; Visit Provider Urology
DX: C61 Malignant neoplasm of prostate (principal)
CPT/HCPCS: 36415; 84153

== ENCOUNTER → 2023-04-09 08:40 | Outpatient (CLI) | payer MEDICARE, SELFPAY ==
[2023-04-09 10:26] LABS: Prostate Specific Antigen 5.57 ng/mL (0.10-4.00)
== END ==
PROVIDERS: Referring Provider Urology; Visit Provider Urology
DX: C61 Malignant neoplasm of prostate (principal)
CPT/HCPCS: 36415; 84153

== ENCOUNTER → 2023-10-09 10:12 | Outpatient (CLI) | payer MEDICARE, SELFPAY ==
[2023-10-09 11:17] LABS: Prostate Specific Antigen 10.3 ng/mL (0.10-4.00)
== END ==
PROVIDERS: Referring Provider Urology; Visit Provider Urology
DX: C61 Malignant neoplasm of prostate (principal)
CPT/HCPCS: 36415; 84153

== ENCOUNTER → 2023-12-16 13:55 | Outpatient (CLI) | payer MEDICARE, SELFPAY ==
[2023-12-16 15:42] LABS: Prostate Specific Antigen 11.8 ng/mL (0.10-4.00)
== END ==
LOC: LAB 13:57
PROVIDERS: Referring Provider Urology; Visit Provider Urology
DX: C61 Malignant neoplasm of prostate (principal)
CPT/HCPCS: 36415; 84153

== ENCOUNTER → 2024-07-07 10:28 | Outpatient (CLI) | payer MEDICARE, SELFPAY | PROVIDERS: Referring Provider Urology; Visit Provider Urology | DX: C61 Malignant neoplasm of prostate (principal) | CPT/HCPCS: 36415; 84153 ==

== ENCOUNTER → 2025-01-04 13:07 | Outpatient (CLI) | payer MEDICARE, SELFPAY ==
[2025-01-04 14:58] LABS: Prostate Specific Antigen 13.7 ng/mL (0.10-4.00)
== END ==
LOC: LAB 13:12
DX: C61 Malignant neoplasm of prostate (principal)
CPT/HCPCS: 36415; 84153

== ENCOUNTER → 2025-07-07 10:51 | Outpatient (CLI) | payer MEDICARE, SELFPAY ==
[2025-07-07 13:11] LABS: Prostate Specific Antigen 13.4 ng/mL (0.10-4.00)
== END ==
PROVIDERS: Referring Provider Physician Assistant; Visit Provider Physician Assistant
DX: C61 Malignant neoplasm of prostate (principal)
CPT/HCPCS: 36415; 84153